=== PATIENT | female | born 1985 | race Caucasian/White ===

== ENCOUNTER 2017-10-19 06:58 | Day surgery (SDC) | payer MEDICAID ==
[~2017-10-19] VITALS: Ht 157.5 cm; Wt 98.3 kg
[2017-10-19] VITALS (12 sets, daily range): BP systolic 108–152; BP diastolic 55–76; PULSE 60–74; RESP 12–20; Ht 157.5 cm; Wt 98.3 kg
[2017-10-19] MEDS ORDERED: CEFAZOLIN 1 GM INJ ONE ×2 (07:00→10:02)
[2017-10-19 08:19] LABS: BASOPHIL # 0.1 10^3/ul (0.0-0.1); EOSINOPHILS # 0.4 10^3/ul (0.0-0.5); EOSINOPHILS % 5.1 % (0.0-7.0); HEMATOCRIT 37.4 % (37.0-47.0); HEMOGLOBIN 12.2 g/dl (12.0-16.0); LYMPHOCYTES # 2.3 10^3/ul (0.8-2.9); LYMPHOCYTES % 28.6 % (15.0-51.0); MEAN CORPUSCULAR HEMOGLOBIN 28.2 pg (29.0-33.0); MEAN CORPUSCULAR HGB CONC 32.6 g/dl (32.0-37.0); MEAN CORPUSCULAR VOLUME 86.6 fl (82.0-101.0); MEAN PLATELET VOLUME 9.4 fl (7.4-10.4); MONOCYTE # 0.5 10^3/ul (0.3-0.9); MONOCYTES % 5.9 % (0.0-11.0); NEUTROPHIL # 4.8 10^3/ul (1.6-7.5); NEUTROPHILS % 59.2 % (39.0-77.0); PLATELET COUNT 324 10^3/UL (140-415); RED BLOOD COUNT 4.32 10^6/ul (4.20-5.40); RED CELL DISTRIBUTION WIDTH 12.8 % (11.5-14.5); WHITE BLOOD COUNT 8.1 10^3/ul (4.8-10.8)
[2017-10-19] MEDS ORDERED: BUPIVACAINE 0.5%/EPI (SDV) 30 ML INJ ONE (09:32)
[2017-10-19] MEDS ORDERED: FENTAnyl 50 MCG/ML VIAL ONE (09:47)
[2017-10-19] MEDS ORDERED: LIDOCAINE 2% (SDV) 5 ML INJ ONE (10:02)
[2017-10-19] MEDS ORDERED: PROPOFOL 20 ML ONE (10:02)
[2017-10-19] MEDS ORDERED: ROCURONIUM 50 MG INJ ONE (10:02)
[2017-10-19] MEDS ORDERED: SUGAMMADEX SODIUM 200 MG/2 ML VIAL IV ONE (10:02)
[2017-10-19] MEDS ORDERED: SUCCINYLCHOLINE CHLORIDE 100 MG/5 ML SYG IV ONE (10:02)
[2017-10-19] MEDS ORDERED: ONDANSETRON 4 MG INJ IV PRN ×2 (10:30→12:00)
[2017-10-19] MEDS ORDERED: DIPHENHYDRAMINE 50 MG INJ IV PRN (10:30)
[2017-10-19] MEDS ORDERED: FENTAnyl 50 MCG/ML VIAL IV PRN ×2 (10:30)
[2017-10-19] MEDS ORDERED: MEPERIDINE 25 MG INJ IV PRN (10:30)
[2017-10-19] MEDS ORDERED: METOCLOPRAMIDE 10 MG INJ IV PRN (10:30)
[2017-10-19] MEDS ORDERED: HYDROmorphONE (0.2 MG/ML) 10ML SYG IV PRN ×2 (10:30)
[2017-10-19] MEDS ORDERED: ROPIVACAINE 0.5 % 30 ML VIAL ONE (11:13)
--- NOTE | 2017-10-19 11:44 | SIPON ---
Date/Time of Note Date/Time of Note DATE: 10/19/17 TIME: 11:42 Operative Report Preoperative Diagnosis Voluntary sterilization Postoperative Diagnosis Same Operation/Procedure Performed Minilaparotomy BTL Surgeon Jorge Cunninhgam MD regulatory assistant biochemistry technologist Anesthesia: general Estimated blood loss: minimal Transfusion Required none Specimen right and left Fallopian tubes Grafts/Implants none Complications none JORGE CUNNINGHAM MD Oct 19, 2017 11:44
[2017-10-19] MEDS ORDERED: KETOROLAC 30 MG INJ IV PRN (12:00)
[2017-10-19] MEDS ORDERED: morphine 2 MG INJ IV PRN (12:00)
[2017-10-19] MEDS ORDERED: HYDROCODONE/APAP (5/325) TAB PO PRN (12:00)
--- NOTE | 2017-10-19 12:05 | OPR ---
DATE OF OPERATION: 10/19/2017 PREOPERATIVE DIAGNOSIS: Voluntary sterilization. POSTOPERATIVE DIAGNOSIS: Voluntary sterilization. OPERATION PERFORMED: Minilaparotomy, bilateral tubal ligation. SURGEON: Dr. Cunningham. LOG YARD MANAGER: technical data analyst. ANESTHESIA: General. ANESTHESIOLOGIST: Dr. Alves. PROCEDURE: The patient was taken to the operating room and placed on the operating table in supine position. After adequate general anesthesia was given, the area was prepared and draped in the usua l sterile fashion. Using a scalpel, Pfannenstiel incision was made about 2 fingerbreadths above the symphysis pubis. T he incision was carried to the fascia. The fascia was incised and extended bilaterally with Bovie. Two Iker's were used to separate the fascia from the muscle. The muscle was dissected down to pe ritoneum. The peritoneum was secured with 2 Kellys and incised with Metzenbaum scissors. Upon ente ring the peritoneal cavity, there were dense pelvic adhesions were noted. Blunt and sharp lysis of adhesions was performed in order to access to the pelvic area. The right fallopian tube was grasped with a Jade clamp. Using 0 plain suture ligature, a 5 cm segment of the right fallopian tube wa s doubly ligated. Using Metzenbaum scissors, a portion of the right fallopian tube above the ligate d area was excised and sent to pathology. Same procedure was repeated on the left fallopian tube. After assuring hemostasis, the peritoneum was closed with 2-0 chromic. The fascia was closed with 0 Vicryl continuous in 2 segments. Subcutaneous tissue was reapproximated with 0 chromic. Skin was closed with geri. ESTIMATED BLOOD LOSS: Minimal. COUNTS: All counts were correct. Dictated By: JORGE CUNNINGHAM MD GD/NTS Conf#: [id number] DID#: [id number] CC: JORGE CUNNINGHAM MD;*EndCC*
--- NOTE | 2017-10-19 12:17 | PREOPHP ---
DATE OF ADMISSION: 10/19/2017 HISTORY OF PRESENT ILLNESS: A 32-year-old female, 4, para 3, AB 1, last menstrual period admitted for voluntary sterilization. PAST MEDICAL HISTORY: Unremarkable. PAST SURGICAL HISTORY: section x3 and cholecystectomy. ALLERGIES: NO KNOWN ALLERGIES. FAMILY HISTORY: Stomach cancer. PHYSICAL EXAMINATION: VITAL SIGNS: The patient is afebrile. Vital signs stable. HEAD, NECK AND CHEST: Within normal limits. ABDOMEN: Soft, nontender, nondistended. PELVIC: Normal. EXTREMITIES: Within normal limits. NEUROLOGIC: Within normal limits. IMPRESSION: Voluntary sterilization. PLAN: Minilaparotomy, bilateral tubal ligation. Risks, benefits and alternatives of the procedure were explained to the patient. The patient has been counseled about all of her contraceptive option s including all methods of sterilization. It was explained to patient that with bilateral tubal lig ation there is a chance of failure resulting in ectopic and/or intrauterine . Af ter counseling, the patient said she understood and gave informed consent for the procedure. Dictated By: JORGE HILLS/ESTEPHANIA Conf#: [id number] DID#: [id number]
== END 2017-10-19 14:08 | disposition home or self-care (01) ==
LOC: SDS 06:58
PROVIDERS: ATTEND Obstetrics & Gynecology
DX: Z30.2 Encounter for sterilization (principal)
CPT/HCPCS: 58600; 85025; 86850; 86900; 86901; 88305; J0690; J1170; J2175; J2270; J2405; J2795; J3010; Z7512; Z7610